=== PATIENT | female | born 1930 | race African-American/Black ===

== ENCOUNTER 2018-02-19 11:03 | Outpatient (CLI) | payer MEDICARE, BC | END 2018-02-19 11:04 | disposition home or self-care (01) | LOC: BICMAMMO 11:03 | PROVIDERS: ATTEND Family Medicine | DX: Z12.31 Encounter for screening mammogram for malignant neoplasm of breast (principal); Z80.3 Family history of malignant neoplasm of breast | CPT/HCPCS: 77063; 77067 ==